=== PATIENT | female | born 1970 | race Caucasian/White ===

== ENCOUNTER 2017-05-19 23:09 | Inpatient (IN) | payer OTHER ==
[~2017-05-19] VITALS: Ht 180.3 cm; Wt 85.7 kg
[2017-05-19 23:11] VITALS: BP 145/90
--- NOTE | 2017-05-20 00:03 | NUR ---
Patient to OF.
--- NOTE | 2017-05-20 00:16 | NUR ---
Dr. Argueta evaluating patient.
[2017-05-20] MEDS ORDERED: NACL 0.9% 1,000 ML IV ONE (00:20)
[2017-05-20] MEDS ORDERED: HYDROmorphone 1 MG/ML AMP IVP ONE (00:20)
--- NOTE | 2017-05-20 00:33 | NUR ---
Patient to bed 07 via wheelchair per EMT.
--- NOTE | 2017-05-20 00:51 | NUR ---
XRAY at bedside.
[2017-05-20 00:53] LABS: BASOPHILS # (AUTO) 0.1 K/uL (0.00-0.22); BASOPHILS % (AUTO) 1.3 % (0.0-2.0); EOSINOPHILS # (AUTO) 0.4 K/uL (0-0.4); EOSINOPHILS % (AUTO) 3.6 % (0.0-4.0); HEMATOCRIT 33.3 % (36-48); HEMOGLOBIN 10.8 g/dL (12.0-16.0); LYMPHOCYTES # (AUTO) 2.1 K/uL (2.5-16.5); LYMPHOCYTES % (AUTO) 20.7 % (20.5-51.1); MEAN CORPUSCULAR HEMOGLOBIN 29 pg (27-31); MEAN CORPUSCULAR HGB CONC 32 g/dL (33-37); MEAN CORPUSCULAR VOLUME 89 fL (80-94); MONOCYTES % (AUTO) 10.2 % (1.7-9.3); NEUTROPHILS # (AUTO) 6.3 K/uL (1.8-7.7); NEUTROPHILS % (AUTO) 64.2 % (42.2-75.2); PLATELET COUNT (AUTO) 271 K/uL (140-450); RED BLOOD CELL COUNT(AUTO) 3.76 MIL/uL (4.20-5.40); RED CELL DISTRIBUTION WIDTH 18.2 % (11.6-13.7); WHITE BLOOD COUNT (AUTO) 9.9 K/uL (4.8-10.8)
--- NOTE | 2017-05-20 00:58 | NUR ---
DR. VARELA AT BEDSIDE
[2017-05-20 01:07] LABS: ANION GAP 10.1 (8-16); CALCIUM 9.4 mg/dL (8.5-10.1); CARBON DIOXIDE 26.1 mmol/L (21-32); POTASSIUM 3.2 mmol/L (3.5-5.1)
--- NOTE | 2017-05-20 01:11 | NUR ---
PATIENT PRESENTS TO ED WITH LEFT ANKLE PAIN, REDNESS, SWELLING STARTED THIS MORNING, AND RT FOOT PAIN, SWELLLING NOTED, NO TRAUMA NOR INJURY. PT STATES I RATHER GIVE THAN HAVING THIS PAIN. DENIES DIARRHEA WITH 2 EPISODES OF VOMITTING AT HOME, SKIN IS PINK/WARM/DRY; AAOX4, LUNGS CLEAR BL; HR EVEN AND REGULAR; PT DENIES ANY FEVER, CP, SOB, OR COUGH AT THIS TIME; PATIENT STATES PAIN OF 10/10 AT THIS TIME; PATIENT POSITIONED FOR COMFORT; HOB ELEVATED; BEDRAILS UP X2; BED DOWN.
[2017-05-20 01:14] LABS: PARTIAL THROMBOPLASTIN TIME 24.5 secs (22-35.6); PROTHROMBIN TIME 10.4 secs (10.8-13.4)
[2017-05-20 01:15] LABS: ALBUMIN 3.5 g/dL (3.4-5.0); TOTAL BILIRUBIN 0.5 mg/dL (0.0-1.0); TOTAL PROTEIN, SERUM 7.4 g/dL (6.4-8.2)
--- NOTE | 2017-05-20 01:16 | NUR ---
PER PT NO PAIN NOW BUT WHEN TOUCH THE PAIN WILL START CLAIMED PLS DONT TOUCH IT
[2017-05-20] MEDS ORDERED: diphenhydrAMINE 50 MG/ML VIAL IVP ONE (01:25)
--- NOTE | 2017-05-20 01:31 | NUR ---
PT SLEEPING AT THIS TIME, WAKE UP PT, PER PT NO PAIN AT THIS TIME.
[2017-05-20] MEDS ORDERED: VANCOMYCIN PER PHARMACY MC PRN (01:35)
[2017-05-20] MEDS ORDERED: VANCOMYCIN 1GM/DEXT 5% PREMIX 200 ML IV ONE (01:35)
[2017-05-20] MEDS ORDERED: AMPICILLIN/SULBACTAM 3 GM in NACL 0.9% 100 ML IV ONE (01:35)
[2017-05-20] MEDS ORDERED: POTASSIUM CHLORIDE 10 MEQ TABER PO ONE (01:40)
[2017-05-20 01:49] LABS: CKMB RELATIVE INDEX 1.1 (0.0-2.5); CREATINE KINASE MB 14.2 ng/mL (0-3.6)
[2017-05-20] MEDS ORDERED: AMPICILLIN/SULBACTAM 3 GM VIAL ONE (01:49)
--- NOTE | 2017-05-20 02:14 | NUR ---
Patient appears to be resting comfortably in bed. Vital Signs within normal limits. Respirations even and unlabored.
--- NOTE | 2017-05-20 02:43 | NUR ---
Patient will be admitted to care of DR MADDEN. Admited to Med/Surg. Will go to room 105A. Belongings list completed. Report to ERMIAS.
--- NOTE | 2017-05-20 02:46 | NUR ---
Pt transferred to Med/Surg via W/C WITH ER EMT.
--- NOTE | 2017-05-20 02:47 | NUR ---
PT STS " I CAN NOT REMEMBER MY LITHIUM DOSE. AND I DO NOT KNOW WHAT ELSE I TAKE." GEN JOYA NOTIFTED.
--- NOTE | 2017-05-20 02:50 | NUR ---
PATIENT ADMITTED WITH BILATERAL FOOT CELLULITIS UPON ADMISSION I ASSISTED THE PATIENT FROM THE WHEELCHAIR TO THE BED I SAW HER LOWER EXTREMITIES AND THEY WERE BOTH SWOLLEN LT MORE THAN THE RIGHT AND WITH SLIGHT REDNESS WELL.PATIENT UNCOOPERATIVE REFUSED SKIN ASSESSMENT AT THIS TIME BUT A FRIEND NAMED YULI IS WITH THE PATIENT AT THIS TIME SHE WAS ABLE TO TALK TO THE PATIENT AND CALM HER DOWN SO I WAS ABLE TO DO MRSA NARES CULTURE AND I WAS ABLE TO DO VITAL SIGNS WELL AND SHE CONTINUES TO KEEP THE PATIENT CALM.I ALSO ATTEMPTED TO GET SOME MEDICAL INFORMATION FROM THE PATIENT BUT SHE IS UNCOOPERATIVE DOESN'T KNOW AND DROWSY SO IM CURRENTLY UNABLE TO ASSESS THE PATIENT WILL OBTAIN MEDICAL INFORMATION FROM MEDICAL RECORD.
--- NOTE | 2017-05-20 02:51 | NUR ---
Patient's Plan of Care was discussed and reviewed with HUMAN DEVELOPMENT PROFESSOR: PAT
[2017-05-20 03:00] VITALS: BP 120/66
--- NOTE | 2017-05-20 04:52 | NUR ---
PATIENT SLEEPING AT THIS TIME IN BED CALM AND WITH NO COMPLAINS OF PAIN WILL CONTINUE TO MONITOR.
[2017-05-20] MEDS ORDERED: VANCOMYCIN 1,000 MG VIAL ONE (05:04)
--- NOTE | 2017-05-20 05:40 | NUR ---
PATIENT SLEEPING AT THIS TIME CURRENTLY CALM VACOMYCIN IV ANTIBIOTIC CURRENTLY INFUSING. NO PAIN OR DISCOMFORT NOTED WILL CONTINUE TO MONITOR.
--- NOTE | 2017-05-20 06:24 | NUR ---
I CALLED Jus JOHNSON SO I CAN GET AN ORDER FOR A DIET ORDER.WILL AWAIT FOR CALL BACK.
--- NOTE | 2017-05-20 06:25 | NUR ---
MD CRAIN CALLED BACK AND GAVE TELEPHONE ORDER FOR A REGULAR DIET.WILL CARRY THE ORDERS OUT.
[2017-05-20 06:27] LABS: BASOPHILS # (AUTO) 0.2 K/uL (0.00-0.22); BASOPHILS % (AUTO) 3.1 % (0.0-2.0); EOSINOPHILS # (AUTO) 0.4 K/uL (0-0.4); HEMATOCRIT 32.7 % (36-48); HEMOGLOBIN 10.4 g/dL (12.0-16.0); LYMPHOCYTES # (AUTO) 1.6 K/uL (2.5-16.5); LYMPHOCYTES % (AUTO) 20.4 % (20.5-51.1); MEAN CORPUSCULAR HEMOGLOBIN 29 pg (27-31); MEAN CORPUSCULAR HGB CONC 32 g/dL (33-37); MEAN CORPUSCULAR VOLUME 90 fL (80-94); MONOCYTES # (AUTO) 0.9 K/uL (0.8-1.0); MONOCYTES % (AUTO) 11.1 % (1.7-9.3); NEUTROPHILS # (AUTO) 4.6 K/uL (1.8-7.7); NEUTROPHILS % (AUTO) 60.4 % (42.2-75.2); PLATELET COUNT (AUTO) 238 K/uL (140-450); RED BLOOD CELL COUNT(AUTO) 3.64 MIL/uL (4.20-5.40); RED CELL DISTRIBUTION WIDTH 18.4 % (11.6-13.7); WHITE BLOOD COUNT (AUTO) 7.7 K/uL (4.8-10.8)
[2017-05-20 06:43] LABS: ALBUMIN 2.9 g/dL (3.4-5.0); ANION GAP 10.8 (8-16); CALCIUM 8.6 mg/dL (8.5-10.1); CARBON DIOXIDE 25.3 mmol/L (21-32); CREATININE 0.9 mg/dL (0.6-1.3); POTASSIUM 3.1 mmol/L (3.5-5.1); TOTAL BILIRUBIN 0.5 mg/dL (0.0-1.0); TOTAL PROTEIN, SERUM 6.4 g/dL (6.4-8.2)
--- NOTE | 2017-05-20 06:58 | NUR ---
PATIENT IS CURRENTLY SLEEPING IN BED IVF INFUSING WELL IV SITE PATENT CALL LIGHT WITHIN REACH WILL CONTINUE TO MONITOR.
--- NOTE | 2017-05-20 07:13 | NUR ---
PATIENT HAS BEEN SCREENED AND CATEGORIZED LOW NUTRITION RISK. PATIENT WILL BE SEEN WITHIN 7 DAYS OF ADMISSION. 05/27/17 CHIO SERVIN MS, RDN
--- NOTE | 2017-05-20 07:13 | NUR ---
PATIENT CURRENTLY SLEEPING IN BED ANTIBIOTIC VANCOMYCIN INFUSING REPORT ENDORSED TO MAYRA UGALDE SHE WILL RESUME CARE OF THE PATIENT.
--- NOTE | 2017-05-20 07:14 | NUR ---
RECEIVED PT FROM [facility] OPERATIONS INTELLIGENCE CHIEF NURSE AT BEDSIDE FOR CONTINUITY OF CARE. PT IS SLEEPING. NO SIGNS OF DISTRESS. IV R HAND 22G NS AT 100ML/HR. WILL BE BACK TO ASSESS PT.
--- NOTE | 2017-05-20 07:55 | NUR ---
PT AWAKE ALERT EATING BREAKFAST. INTRODUCED SELF AND UPDATE BOARD. VS: WNL. PT HAS BILATERAL EXTREMITY REDNESS AND SWELLING. NO COMPLAINTS OF PAIN AT THIS TIME. K AT 3.[address] WILL DISCUSS WITH DR. MADDEN. WILL CONTINUE TO MONITOR PT.
[2017-05-20 08:00] VITALS: BP 104/77
--- NOTE | 2017-05-20 08:45 | NUR ---
PT COMPLAINED OF PAIN IN IV SITE. FLUSHED IV. PATENT NO REDNESS, NO SIGNS ON INFILTRATION. WILL STOP IV AND LET ARM REST. WILL CHECK ON AGAIN IN A FEW HOURS. MAY NEED TO RESTART IV.
--- NOTE | 2017-05-20 10:00 | NUR ---
CHECKED IV SITE, CHECKED FOR PATENCY. IV FLUSHED FINE. PT STATED NO MORE PAIN AND NUMBNESS. RESTARTED IV AT 80ML/HR. WILL CONTINUE TO MONITOR IV SITE.
--- NOTE | 2017-05-20 10:30 | NUR ---
CHECKED ON PT. NO COMPLAINTS AT THIS TIME. RESTING IN BED. WILL LET US KNOW WHEN NEED ASSISTANCE TO RESTROOM. WILL CONTINUE TO MONITOR PT.
[2017-05-20] MEDS ORDERED: AMPICILLIN/SULBACTAM 3 GM in NACL 0.9% 100 ML IV SCH (13:00)
[2017-05-20] MEDS ORDERED: POTASSIUM CHLORIDE 10 MEQ TABER PO SCH (13:58)
--- NOTE | 2017-05-20 17:10 | NUR ---
CHECKED ON PT. PT EATING DINNER. PT REQUESTING PAIN MEDICATIONS. WILL CALL DR FOR PAIN MED ORDERS..
[2017-05-20] MEDS: NACL 0.9% 1,000 ML IV SCH ×2 (17:53→21:50)
[2017-05-20] MEDS ORDERED: HYDROcodone/APAP 10/325 MG 1 TAB TAB PO PRN (19:00)
[2017-05-20] MEDS ORDERED: HYDROmorphone 1 MG/ML AMP IVP PRN (19:00)
--- NOTE | 2017-05-20 19:10 | NUR ---
ENDORSED PT TO THE NIGHTSHIFT NURSE AT BEDSIDE FOR CONTINUITY OF CARE. PT IN STABLE CONDITION.
--- NOTE | 2017-05-20 19:11 | NUR ---
PATIENT IS CURRENTLY AWAKE AND RESTING IN BED CALM AND COOPERATIVE PATIENT DENIES PAIN AT THIS TIME.IVF INFUSING WELL IV SITE PATENT.BOTH LOWER EXTREMITIES CONTINUE TO BE KEPT ELEVATED.CALL LIGHT WITHIN REACH PATIENT ABLE TO MAKE NEEDS KNOWN.WILL CONTINUE TO MONITOR.
--- NOTE | 2017-05-20 19:15 | NUR ---
Patient's Plan of Care was discussed and reviewed with CLERK CASHIER: Charles MYERS
[2017-05-20 20:00] VITALS: BP 107/63
[2017-05-20] MEDS: CLINDAMYCIN 600 MG in DEXTROSE 5% 50 ML IV SCH (20:27)
--- NOTE | 2017-05-20 22:30 | NUR ---
PATIENT IS CURRENTLY RESTING IN BED WATCHING TV DENIES PAIN AND DISCOMFORT.WILL CONTINUE TO MONITOR.CALL LIGHT WITHIN REACH.
--- NOTE | 2017-05-20 23:00 | NUR ---
PATIENT STABLE IS AWARE THAT SHE NEEDS TO GIVE US A URINE SPECIMEN AND NEEDS TO BE REMINDED.SPECIMEN CUP LEFT AT BEDSIDE.
--- NOTE | 2017-05-21 00:05 | NUR ---
PATIENT IS CURRENTLY SLEEPING IN BED IVF INFUSING WELL IV SITE PATENT.CALL LIGHT WITHIN REACH.
[2017-05-21 00:30] VITALS: BP 101/59
--- NOTE | 2017-05-21 02:58 | NUR ---
PATIENT IS CURRENTLY SLEEPING WELL IN BED IVF INFUSING WELL IV SITE PATENT NO PAIN OR DISCOMFORT NOTED WILL CONTINUE TO MONITOR.
[2017-05-21] MEDS: NACL 0.9% 1,000 ML IV SCH ×2 (03:22→13:49)
[2017-05-21] MEDS: CLINDAMYCIN 600 MG in DEXTROSE 5% 50 ML IV SCH ×2 (05:16→13:42)
[2017-05-21 05:59] LABS: BASOPHILS # (AUTO) 0.2 K/uL (0.00-0.22); BASOPHILS % (AUTO) 3.7 % (0.0-2.0); EOSINOPHILS # (AUTO) 0.4 K/uL (0-0.4); HEMOGLOBIN 9.8 g/dL (12.0-16.0); LYMPHOCYTES # (AUTO) 2.1 K/uL (2.5-16.5); MEAN CORPUSCULAR HEMOGLOBIN 29 pg (27-31); MEAN CORPUSCULAR HGB CONC 32 g/dL (33-37); MEAN CORPUSCULAR VOLUME 91 fL (80-94); MONOCYTES # (AUTO) 0.6 K/uL (0.8-1.0); MONOCYTES % (AUTO) 10.2 % (1.7-9.3); NEUTROPHILS # (AUTO) 2.6 K/uL (1.8-7.7); NEUTROPHILS % (AUTO) 45.1 % (42.2-75.2); PLATELET COUNT (AUTO) 179 K/uL (140-450); RED CELL DISTRIBUTION WIDTH 19.1 % (11.6-13.7); WHITE BLOOD COUNT (AUTO) 5.9 K/uL (4.8-10.8)
--- NOTE | 2017-05-21 05:59 | NUR ---
PATIENT SLEEPING COMFORTABLY IN BED,NO PAIN OR DISCOMFORT NOTED.IVF INFUSING WELL IV SITE PATENT.NEEDS MET WILL CONTINUE TO MONITOR.
[2017-05-21 06:09] LABS: ALANINE AMINOTRANSFERASE 38 U/L (14-59); ALBUMIN 2.3 g/dL (3.4-5.0); ALKALINE PHOSPHATASE 74 U/L (46-116); ANION GAP 8.7 (8-16); ASPARTATE AMINOTRANSFERASE 41 U/L (15-37); CALCIUM 7.9 mg/dL (8.5-10.1); CARBON DIOXIDE 26.2 mmol/L (21-32); CHLORIDE 111 mmol/L (98-107); CREATINE KINASE, TOTAL 312 U/L (26-192); CREATININE 0.9 mg/dL (0.6-1.3); GFR ARICAN-AMERICAN 86 mL/min (>90); GFR NON ARICAN-AMERICAN 71 mL/min (>90); GLUCOSE 83 mg/dL (74-106); POTASSIUM 3.9 mmol/L (3.5-5.1); SODIUM SERUM 142 mmol/L (136-145); TOTAL BILIRUBIN 0.2 mg/dL (0.0-1.0); TOTAL PROTEIN, SERUM 5.3 g/dL (6.4-8.2); UREA NITROGEN, BLOOD 9 mg/dL (7-18)
--- NOTE | 2017-05-21 06:36 | NUR ---
PATIENT STABLE IS AWARE THAT SHE NEEDS TO GIVE US A URINE SPECIMEN AND NEEDS TO BE REMINDED.SPECIMEN CUP LEFT AT BEDSIDE.
--- NOTE | 2017-05-21 07:42 | NUR ---
PATIENT STABLE REPORT ENDORSED TO MAYRA SWEENEY AT BEDSIDE.
--- NOTE | 2017-05-21 07:43 | NUR ---
REPORT RECEIVED FROM NIGHT NURSE, A&OX4, IV PATENT, NO COMPLAINTS OF PAIN, CALL LIGHT WITHIN REACH, SAFETY ENSURED WILL MONITOR.
[2017-05-21 08:00] VITALS: BP 122/67
--- NOTE | 2017-05-21 09:32 | NUR ---
CM NOTE: INITIAL REVIEW FAXED TO [facility] [phone],
--- NOTE | 2017-05-21 09:40 | NUR ---
MORNING MED GIVEN WITH TEACHING, PT VERBALIZED UNDERSTANDING, SAFETY MEASURES ENSURED, NO COMPLAINTS, NO S/S OF DISTRESS, WILL MONITOR.
--- NOTE | 2017-05-21 11:40 | NUR ---
PT STATED SHE WANTED TO GO HOME, STATED SHE WOULD WAIT UNTIL THE DOCTOR COMES IN TO SEE HER, NO COMPLAINTS OF PAIN OR DISCOMFORT, NO S/S OF DISTRESS, SAFETY MEASURES ENSURED, WILL MONITOR.
[2017-05-21] MEDS ORDERED: CEPH250C16 PO ×2 (14:54→14:55)
[2017-05-21] MEDS ORDERED: CLIN75CA2 PO (14:57)
[2017-05-21 15:33] VITALS: BP 122/62
--- NOTE | 2017-05-21 15:40 | NUR ---
PT DISCHARGED WITH USE OF WHEELCHAIR, LEFT IN PRIVATE VEHICLE WITH FAMILY MEMBER, NO S/S DISTRESS, PT STATED "I'M READY TO GET HOME TO BE WITH MY SON FOR SCHOOL REGISTRATION". PRESCRIPTIONS GIVEN WITH TEACHING, PT VERBALIZED UNDERSTANDING.
== END 2017-05-21 15:40 | disposition home or self-care (01) | DRG 383 ==
LOC: MED 23:09 → MTU 05-20 02:12
PROVIDERS: ADMIT Hospitalist; ATTEND Hospitalist
DX: L03.116 Cellulitis of left lower limb (principal); M62.82 Rhabdomyolysis; L03.115 Cellulitis of right lower limb; F31.9 Bipolar disorder, unspecified; L40.9 Psoriasis, unspecified; Z87.891 Personal history of nicotine dependence; F10.10 Alcohol abuse, uncomplicated; I89.0 Lymphedema, not elsewhere classified
CPT/HCPCS: 36415; 71010; 73630; 80053; 82550; 82553; 84484; 85025; 85610; 85730; 87040; 87081; 93970; 96361; 96365; 96375; 99285; J0295; J0696; J1170; J1200; J3370; J3490; J7030; J7060; Q0092